=== PATIENT | female | born 1970 | race Caucasian/White ===

== ENCOUNTER 2017-06-09 10:52 | Emergency (ER) | payer OTHER ==
[~2017-06-09] VITALS: Ht 162.6 cm; Wt 54.9 kg
[~2017-06-09 10:52] MED LIST: CATAPRES0.2 MG; CEFADROXIL500 MG PO; CLONAZEPAM1 GM MC; COZAAR100 MG; KEPPRA1000 MG; LASIX20 MG; LOVENOX60 MG/0.6; NEURIN SL; NEURONTIN800 MG PO; NORFLEX100 MG; NORVASC2.5 MG; NUCYNTA50 MG; ORPHENADRINE C100 MG PO; OXECTA7.5 MG PO; PERCOCET 10/3251 TAB PO; PERCOCET 5/321 UDTAB PO; PERCOCET 5/3251 TAB PO; PHENERGAN25 MG PO; PRISTIQ ER50 MG; PROTONIX40 MG PO; RESTORIL7.5 MG PO; SEROQUEL50 MG; TEMAZEPAM15 MG; ULTRAM50 MG PO; VASOTEC10 MG; VICODIN 5/5001 UDTAB PO; ZANTAC300 MG PO; [UNRECOGNIZED DRUG - OTHER]
== END 2017-06-09 13:13 | disposition home or self-care (01) ==
LOC: ER 10:52
DX: S80.02XA Contusion of left knee, initial encounter (principal); M25.062 Hemarthrosis, left knee; W18.39XA Other fall on same level, initial encounter; Y93.89 Activity, other specified; Y92.098 Other place in other non-institutional residence as the place of occurrence of the external cause; Y99.8 Other external cause status

== ENCOUNTER 2017-06-14 06:02 | Day surgery (SDC) | payer OTHER ==
[2017-06-14] MEDS ORDERED: TYLENOL-CODEINE1 TA1 PO (16:51)
[2017-06-14] MEDS ORDERED: CEFADROXIL500 MG PO (16:51)
[2017-06-14] MEDS ORDERED: XARELTO10 MG PO (16:51)
== END 2017-06-14 19:00 | disposition home or self-care (01) ==
LOC: CIR.AMB 06:02
DX: S82.121A Displaced fracture of lateral condyle of right tibia, initial encounter for closed fracture (principal); M25.061 Hemarthrosis, right knee; S80.01XA Contusion of right knee, initial encounter

== ENCOUNTER 2018-02-07 11:42 | Emergency (ER) | payer OTHER ==
[~2018-02-07] VITALS: Ht 162.6 cm; Wt 63.0 kg
[~2018-02-07 11:42] MED LIST changes: +TYLENOL-CODEINE1 TA1 PO; +XARELTO10 MG PO
[2018-02-07] MEDS ORDERED: PEPCID20 MG (12:13)
[2018-02-07] MEDS ORDERED: KEPPRA1000 MG (12:14)
[2018-02-07] MEDS ORDERED: BENADRYL50 MG (12:14)
== END 2018-02-07 20:41 | disposition home or self-care (01) ==
LOC: ER 11:42
DX: K29.00 Acute gastritis without bleeding (principal)

== ENCOUNTER 2018-02-22 08:22 | Outpatient (CLI) | payer OTHER ==
[~2018-02-22 08:22] MED LIST changes: +BENADRYL50 MG; +PEPCID20 MG
== END 2018-02-22 08:53 | disposition home or self-care (01) ==
LOC: NUCLEAR 08:22
DX: I11.9 Hypertensive heart disease without heart failure (principal)

== ENCOUNTER 2018-05-23 11:53 | Outpatient (CLI) | payer OTHER | END 2018-05-23 14:21 | disposition home or self-care (01) | LOC: NUCLEAR 11:53 | DX: I87.2 Venous insufficiency (chronic) (peripheral) (principal) ==

== ENCOUNTER 2019-05-19 15:13 | Emergency (ER) | payer OTHER ==
[~2019-05-19] VITALS: Ht 162.6 cm; Wt 69.4 kg
== END 2019-05-19 23:37 | disposition home or self-care (01) ==
LOC: ER 15:13
DX: J11.1 Influenza due to unidentified influenza virus with other respiratory manifestations (principal)

== ENCOUNTER 2019-07-17 17:54 | Emergency (ER) | payer OTHER ==
[~2019-07-17] VITALS: Ht 162.6 cm; Wt 66.7 kg
== END 2019-07-17 21:29 | disposition home or self-care (01) ==
LOC: ER 17:54
DX: J22 Unspecified acute lower respiratory infection (principal); B96.0 Mycoplasma pneumoniae [M. pneumoniae] as the cause of diseases classified elsewhere

== ENCOUNTER 2019-09-25 11:15 | Outpatient (CLI) | payer OTHER | END 2019-09-25 11:37 | disposition home or self-care (01) | LOC: MAMO-SONO 11:15 | PROVIDERS: ATTEND Internal Medicine Nephrology | DX: Z85.3 Personal history of malignant neoplasm of breast (principal) ==

== ENCOUNTER 2019-09-25 12:06 | Outpatient (CLI) | payer OTHER | END 2019-09-25 14:02 | disposition home or self-care (01) | LOC: NUCLEAR 12:06 | PROVIDERS: ATTEND Internal Medicine | DX: I26.99 Other pulmonary embolism without acute cor pulmonale (principal) | CPT/HCPCS: 78580; A9540 ==

== ENCOUNTER 2019-12-15 13:39 | Emergency (ER) | payer OTHER ==
[~2019-12-15] VITALS: Ht 162.6 cm; Wt 64.4 kg
== END 2019-12-15 16:21 | disposition home or self-care (01) ==
LOC: ER 13:39
DX: S80.01XA Contusion of right knee, initial encounter (principal); W18.09XA Striking against other object with subsequent fall, initial encounter; Y93.89 Activity, other specified; Y92.018 Other place in single-family (private) house as the place of occurrence of the external cause; Y99.8 Other external cause status

== ENCOUNTER 2020-04-14 09:00 | Emergency (ER) | payer OTHER ==
[~2020-04-14] VITALS: Ht 162.6 cm; Wt 63.5 kg
[2020-04-14] MEDS ORDERED: CLONAZEPAM1 MG PO (09:31)
[2020-04-14] MEDS ORDERED: RESTORIL30 MG PO (09:31)
[2020-04-14] MEDS ORDERED: CARVEDILOL3.125 M1 PO (09:31)
[2020-04-14] MEDS ORDERED: CLONIDINE HCL0.2 MG PO (09:31)
[2020-04-14] MEDS ORDERED: KEPPRA1000 MG PO (09:32)
[2020-04-14] MEDS ORDERED: PERCOCET 5-3251 EACH PO (11:39)
== END 2020-04-14 12:21 | disposition home or self-care (01) ==
LOC: ER 09:00
DX: S52.025A Nondisplaced fracture of olecranon process without intraarticular extension of left ulna, initial encounter for closed fracture (principal); M79.622 Pain in left upper arm; W01.198A Fall on same level from slipping, tripping and stumbling with subsequent striking against other object, initial encounter; Y93.89 Activity, other specified; Y92.018 Other place in single-family (private) house as the place of occurrence of the external cause; Y99.8 Other external cause status

== ENCOUNTER 2020-08-16 14:53 | Emergency (ER) | payer OTHER ==
[~2020-08-16] VITALS: Ht 162.6 cm; Wt 65.8 kg
[~2020-08-16 14:53] MED LIST changes: +CARVEDILOL3.125 M1 PO; +CLONAZEPAM1 MG PO; +CLONIDINE HCL0.2 MG PO; +KEPPRA1000 MG PO; +PERCOCET 5-3251 EACH PO; +RESTORIL30 MG PO
[2020-08-16] MEDS ORDERED: PERCOCET 5-3251 EACH PO (19:46)
== END 2020-08-16 20:28 | disposition home or self-care (01) ==
LOC: ER 14:53
DX: S92.351A Displaced fracture of fifth metatarsal bone, right foot, initial encounter for closed fracture (principal); S00.83XA Contusion of other part of head, initial encounter; M79.671 Pain in right foot; W01.198A Fall on same level from slipping, tripping and stumbling with subsequent striking against other object, initial encounter; Y93.89 Activity, other specified; Y92.018 Other place in single-family (private) house as the place of occurrence of the external cause; Y99.8 Other external cause status

== ENCOUNTER 2021-04-18 19:05 | Emergency (ER) | payer OTHER ==
[~2021-04-18] VITALS: Ht 157.5 cm; Wt 63.5 kg
== END 2021-04-18 21:39 | disposition home or self-care (01) ==
LOC: ER 19:05
DX: R07.89 Other chest pain (principal); N39.0 Urinary tract infection, site not specified

== ENCOUNTER 2021-05-31 15:44 | Emergency (ER) | payer OTHER ==
[~2021-05-31] VITALS: Ht 152.4 cm; Wt 68.0 kg
[2021-05-31] MEDS ORDERED: LEXAPRO20 MG PO (15:49)
== END 2021-05-31 19:01 | disposition home or self-care (01) ==
LOC: ER 15:44
DX: J45.909 Unspecified asthma, uncomplicated (principal); Z20.822 Contact with and (suspected) exposure to COVID-19; Z88.6 Allergy status to analgesic agent; Z88.2 Allergy status to sulfonamides; Z88.8 Allergy status to other drugs, medicaments and biological substances

== ENCOUNTER 2022-05-21 11:25 | Emergency (ER) | payer OTHER ==
[~2022-05-21] VITALS: Ht 162.6 cm; Wt 70.8 kg
[~2022-05-21 11:25] MED LIST changes: +LEXAPRO20 MG PO
[2022-05-21] MEDS ORDERED: PERCOCET 5-3251 EACH PO (14:42)
== END 2022-05-21 14:55 | disposition home or self-care (01) ==
LOC: ER 11:25
DX: S09.90XA Unspecified injury of head, initial encounter (principal); W18.30XA Fall on same level, unspecified, initial encounter; Y93.9 Activity, unspecified; Y92.019 Unspecified place in single-family (private) house as the place of occurrence of the external cause; S80.12XA Contusion of left lower leg, initial encounter; Z88.0 Allergy status to penicillin; Z88.2 Allergy status to sulfonamides; Z86.73 Personal history of transient ischemic attack (TIA), and cerebral infarction without residual deficits; Z86.72 Personal history of thrombophlebitis; G40.909 Epilepsy, unspecified, not intractable, without status epilepticus; E78.00 Pure hypercholesterolemia, unspecified; Z86.711 Personal history of pulmonary embolism; I12.9 Hypertensive chronic kidney disease with stage 1 through stage 4 chronic kidney disease, or unspecified chronic kidney disease; N18.9 Chronic kidney disease, unspecified

== ENCOUNTER 2022-05-28 13:17 | Emergency (ER) | payer OTHER ==
[~2022-05-28] VITALS: Ht 162.6 cm; Wt 72.1 kg
[2022-05-28] MEDS ORDERED: LOVENOX80 MG/0.8 (13:45)
[2022-05-28] MEDS ORDERED: CARVEDILOL ER40 MG (13:46)
[2022-05-28] MEDS ORDERED: HYDRALAZINE HCL25 MG (13:46)
[2022-05-28] MEDS ORDERED: MEDROLPACK PO (15:23)
[2022-05-28] MEDS ORDERED: PERCOCET 10-321 EACH PO (15:23)
== END 2022-05-28 15:37 | disposition home or self-care (01) ==
LOC: ER 13:17
DX: M72.2 Plantar fascial fibromatosis (principal); Z88.2 Allergy status to sulfonamides; Z88.6 Allergy status to analgesic agent; E78.00 Pure hypercholesterolemia, unspecified; D68.9 Coagulation defect, unspecified; Z86.718 Personal history of other venous thrombosis and embolism

== ENCOUNTER 2022-09-13 10:58 | Outpatient (CLI) | payer OTHER ==
[~2022-09-13 10:58] MED LIST changes: +CARVEDILOL ER40 MG; +HYDRALAZINE HCL25 MG; +LOVENOX80 MG/0.8; +MEDROLPACK PO; +PERCOCET 10-321 EACH PO
== END 2022-09-13 11:02 | disposition home or self-care (01) ==
LOC: NUCLEAR 10:58
DX: I26.99 Other pulmonary embolism without acute cor pulmonale (principal)

== ENCOUNTER 2024-12-24 08:33 | Outpatient (CLI) | payer OTHER | END 2024-12-24 08:50 | disposition home or self-care (01) | LOC: TOM 08:33 | PROVIDERS: ATTEND Internal Medicine Cardiovascular Disease | DX: R51.9 Headache, unspecified (principal) ==